=== PATIENT | female | born 1995 | race Caucasian/White ===

== ENCOUNTER 2019-08-17 11:29 | Inpatient (IN) | payer OTHER ==
[~2019-08-17] VITALS: Ht 162.6 cm; Wt 88.0 kg
[2019-08-17] MEDS ORDERED: OXYTOCIN/0.9 % SODIUM CHLORIDE 1,000 ML IV SCH (11:57)
[2019-08-17] MEDS ORDERED: AMPICILLIN SODIUM 2 GM in NS 100 ML IV ONE (12:00)
[2019-08-17] MEDS ORDERED: TERBUTALINE SULFATE 1 MG/ML VIAL SUBCUT ONE (12:00)
[2019-08-17 12:54] LABS: BASOPHILS % (AUTO) 0.1 % (0.0-2.0); EOSINOPHILS % (AUTO) 0.7 % (0.0-4.0); HEMATOCRIT 28.4 % (36-48); HEMOGLOBIN 9.3 g/dL (12.0-16.0); LYMPHOCYTES # (AUTO) 1.9 K/uL (1.0-5.5); LYMPHOCYTES % (AUTO) 35.1 % (20.5-51.5); MEAN CORPUSCULAR HEMOGLOBIN 27 pg (27-31); MEAN CORPUSCULAR HGB CONC 33 % (32-36); MEAN CORPUSCULAR VOLUME 82 fL (79.0-98.0); MONOCYTES # (AUTO) 0.3 K/uL (0.0-1.0); MONOCYTES % (AUTO) 5.4 % (1.7-9.3); NEUTROPHILS # (AUTO) 3.1 K/uL (1.8-7.7); NEUTROPHILS % (AUTO) 58.7 % (40.0-70.0); PLATELET COUNT (AUTO) 299 K/uL (130-430); RED BLOOD CELL COUNT(AUTO) 3.45 MIL/uL (4.2-6.2); RED CELL DISTRIBUTION WIDTH 15.9 % (9.0-15.0); WHITE BLOOD COUNT (AUTO) 5.3 K/uL (4.8-10.8)
[2019-08-17] MEDS: LR 1,000 ML IV SCH ×2 (13:09→20:06)
[2019-08-17] MEDS: MISOPROSTOL 100 MCG TABLET (CYTOTEC) PO PRN ×2 (13:12→17:07)
[2019-08-17 16:38] VITALS: BP_SYST 125
[2019-08-17] MEDS: AMPICILLIN SODIUM 1 GM in NS 50 ML IV SCH ×2 (17:06→20:07)
[2019-08-17] MEDS ORDERED: ROPIVACAINE HCL/PF 0.2% 200 ML ONE (19:35)
[2019-08-17] MEDS ORDERED: fentaNYL CITRATE/PF 100 MCG/2 ML AMP ONE (19:35)
[2019-08-17] MEDS ORDERED: LR 500 ML IV ONE (19:53)
[2019-08-17] MEDS ORDERED: FENT2mCg/mL-ROPIVA0.2%/NS EPID 200 ML EP SCH (20:00)
[2019-08-18] MEDS: AMPICILLIN SODIUM 1 GM in NS 50 ML IV SCH ×5 (04:34→12:05)
[2019-08-18] MEDS: ONDANSETRON HCL 4 MG/2 ML VIAL IVP PRN ×2 (04:34→08:15)
[2019-08-18] MEDS: LR 1,000 ML IV SCH ×3 (04:34→11:20)
[2019-08-18] MEDS ORDERED: ROPIVACAINE HCL/PF 0.2% 100 ML ONE ×2 (08:13→11:09)
[2019-08-18] MEDS ORDERED: ROPIVACAINE HCL/PF 0.2% 200 ML EP ONE (09:15)
[2019-08-18] MEDS ORDERED: fentaNYL CITRATE/PF 100 MCG/2 ML AMP ONE ×2 (09:24→10:48)
[2019-08-18] MEDS ORDERED: fentaNYL CITRATE/PF 100 MCG/2 ML AMP EP ONE (10:45)
[2019-08-18] MEDS ORDERED: METHYLERGONOVINE MALEATE 0.2 MG/ML AMP IM ONE (13:55)
[2019-08-18] MEDS ORDERED: METHYLERGONOVINE MALEATE 0.2 MG/ML AMP ONE (13:59)
[2019-08-18] MEDS ORDERED: OXYCODONE/ACETAMINOPHEN 5-325 TABLET ONE (14:16)
[2019-08-18] MEDS ORDERED: OXYTOCIN/0.9 % SODIUM CHLORIDE 1,000 ML IV ONE (15:40)
[2019-08-18] MEDS ORDERED: WITCH HAZEL LEAF 1 MED.PAD MED.PAD TP PRN (15:45)
[2019-08-18] MEDS ORDERED: RHO(D) IMMUNE GLOBULIN/MALTOSE 1500 UNITS/1.3 ML (WINHRO) IM PRN (15:45)
[2019-08-18] MEDS ORDERED: ANUSOL 1 EA SUPP.RECT (PREPARATION H) RC PRN (15:45)
[2019-08-18] MEDS ORDERED: SENNOSIDES/DOCUSATE SODIUM 1 TAB TABLET(SENOKOT-S) PO PRN (15:45)
[2019-08-18] MEDS ORDERED: HYDROCORTISONE 0.5%, 28.35 GM TOPICAL CREAM TP PRN (15:45)
[2019-08-18] MEDS ORDERED: METHYLERGONOVINE MALEATE 0.2 MG TABLET PO PRN (15:45)
[2019-08-18] MEDS ORDERED: OXYCODONE/ACETAMINOPHEN 5-325 TABLET PO PRN (15:45)
[2019-08-18] MEDS ORDERED: LANOLIN 7 GM OINT. TP PRN (15:45)
[2019-08-18] MEDS ORDERED: DIPH-TET-PERTUS Vaccine 0.5 ML VIAL (ADACEL) I.M. PRN (15:45)
[2019-08-18] MEDS ORDERED: MEASLES,MUMPS&RUBELLA VACC/PF 12500 UNIT/0.5 ML VIAL SUBQ PRN (15:45)
[2019-08-18] MEDS ORDERED: DERMOPLAST SPRAY TP PRN (15:45)
[2019-08-18] MEDS ORDERED: TEMAZEPAM 15 MG CAPSULE PO PRN (21:00)
[2019-08-18] MEDS: DOCUSATE SODIUM 100 MG CAPSULE PO PRN (22:30)
[2019-08-18] MEDS: OXYCODONE/ACETAMINOPHEN 5-325 TABLET PO PRN (22:32)
[2019-08-19] MEDS: IBUPROFEN 600 MG TABLET PO SCH ×3 (06:00→12:06)
[2019-08-19] MEDS: DOCUSATE SODIUM 100 MG CAPSULE PO PRN ×2 (06:16→21:09)
[2019-08-19 07:44] LABS: BASOPHILS % (AUTO) 0.1 % (0.0-2.0); EOSINOPHILS % (AUTO) 0.5 % (0.0-4.0); LYMPHOCYTES # (AUTO) 2.1 K/uL (1.0-5.5); LYMPHOCYTES % (AUTO) 27.2 % (20.5-51.5); MEAN CORPUSCULAR HEMOGLOBIN 27 pg (27-31); MEAN CORPUSCULAR HGB CONC 33 % (32-36); MEAN CORPUSCULAR VOLUME 82 fL (79.0-98.0); MONOCYTES # (AUTO) 0.5 K/uL (0.0-1.0); MONOCYTES % (AUTO) 6.8 % (1.7-9.3); NEUTROPHILS % (AUTO) 65.4 % (40.0-70.0); PLATELET COUNT (AUTO) 244 K/uL (130-430); RED BLOOD CELL COUNT(AUTO) 2.36 MIL/uL (4.2-6.2); RED CELL DISTRIBUTION WIDTH 16.2 % (9.0-15.0); WHITE BLOOD COUNT (AUTO) 7.7 K/uL (4.8-10.8)
[2019-08-19 07:53] LABS: HEMATOCRIT 19.5 % (36-48); HEMOGLOBIN 6.3 g/dL (12.0-16.0)
[2019-08-19] MEDS: OXYCODONE/ACETAMINOPHEN 5-325 TABLET PO PRN ×3 (08:10→21:09)
[2019-08-19] MEDS ORDERED: BUPIVACAINE /PF 0.25% 30 ML VIAL INJ ONE (10:36)
[2019-08-19] MEDS ORDERED: LIDOCAINE PF 1% 30ML(POUR BTL) INJ ONE (10:37)
[2019-08-19] MEDS ORDERED: MINERAL OIL 30 ML UDC PO ONE (10:38)
[2019-08-19] MEDS: FERROUS SULFATE 325 MG TABLET.DR PO SCH (21:00)
[2019-08-20] MEDS: IBUPROFEN 600 MG TABLET PO SCH ×2 (00:15→06:24)
[2019-08-20] MEDS: FERROUS SULFATE 325 MG TABLET.DR PO SCH (09:00)
== END 2019-08-20 12:37 | disposition home or self-care (01) | DRG 560 ==
LOC: SPU 11:29
PROVIDERS: ADMIT Obstetrics & Gynecology; ATTEND Obstetrics & Gynecology
PROC: 3E0R3BZ Introduction of Anesthetic Agent into Spinal Canal, Percutaneous Approach (ICD-10-PCS; principal; 2019-08-18)
PROC: 10E0XZZ Delivery of Products of Conception, External Approach (ICD-10-PCS; 2019-08-18)
PROC: 00HU33Z Insertion of Infusion Device into Spinal Canal, Percutaneous Approach (ICD-10-PCS; 2019-08-18)
PROC: 0W8NXZZ Division of Female Perineum, External Approach (ICD-10-PCS; 2019-08-18)
PROC: 3E0234Z Introduction of Serum, Toxoid and Vaccine into Muscle, Percutaneous Approach (ICD-10-PCS; 2019-08-19)
DX: O99.824 Streptococcus B carrier state complicating childbirth (principal); R71.0 Precipitous drop in hematocrit; O26.893 Other specified pregnancy related conditions, third trimester; Z3A.39 39 weeks gestation of pregnancy; Z37.0 Single live birth; Z88.5 Allergy status to narcotic agent; Z88.8 Allergy status to other drugs, medicaments and biological substances; Z67.11 Type A blood, Rh negative
CPT/HCPCS: 36415; 81002-TC; 82962; 85018-TC; 85025; 86592; 86870; 86886; 86900; 86901; 94760; J0290; J2001; J2210; J2405; J2590; J2790; J2795; J3010; J3490

== ENCOUNTER 2021-04-14 02:30 | Observation (INO) | payer OTHER ==
[~2021-04-14] VITALS: Ht 154.9 cm; Wt 80.7 kg
== END 2021-04-14 05:35 | disposition home or self-care (01) ==
LOC: SPU 02:30
PROVIDERS: ADMIT Obstetrics & Gynecology; ATTEND Obstetrics & Gynecology
DX: O62.9 Abnormality of forces of labor, unspecified (principal); Z3A.38 38 weeks gestation of pregnancy
CPT/HCPCS: 81002; G0378

== ENCOUNTER 2021-04-23 21:30 | Inpatient (IN) | payer OTHER, SELFPAY ==
[~2021-04-23] VITALS: Ht 154.9 cm; Wt 80.7 kg
[2021-04-23] MEDS ORDERED: TERBUTALINE SULFATE 1 MG/ML VIAL SUBCUT ONE (22:00)
[2021-04-23] MEDS ORDERED: AMPICILLIN SODIUM 2 GM in NS 100 ML IV ONE (22:00)
[2021-04-23] MEDS ORDERED: OXYTOCIN/0.9 % SODIUM CHLORIDE 1,000 ML IV SCH (22:00)
[2021-04-23] MEDS ORDERED: NALBUPHINE HCL 10 MG/ML AMP IVP PRN (22:00)
[2021-04-23] MEDS ORDERED: LR 1,000 ML IV SCH (22:00)
[2021-04-23] MEDS ORDERED: LR 500 ML IV ONE ×2 (22:00→23:30)
[2021-04-23] MEDS ORDERED: AMPICILLIN SODIUM 2 GM VIAL ONE (22:23)
[2021-04-23] MEDS ORDERED: NALBUPHINE HCL 10 MG/ML AMP ONE (22:24)
[2021-04-23 22:40] VITALS: BP_SYST 151
[2021-04-23 23:02] LABS: BASOPHILS % (AUTO) 0.6 % (0.0-2.0); EOSINOPHILS % (AUTO) 0.7 % (0.0-4.0); HEMOGLOBIN 9.1 g/dL (12.0-16.0); LYMPHOCYTES # (AUTO) 2.2 K/uL (1.0-5.5); LYMPHOCYTES % (AUTO) 29.1 % (20.5-51.5); MEAN CORPUSCULAR HEMOGLOBIN 26 pg (27-31); MEAN CORPUSCULAR HGB CONC 33 % (32-36); MEAN CORPUSCULAR VOLUME 79 fL (79.0-98.0); MONOCYTES # (AUTO) 0.6 K/uL (0.0-1.0); MONOCYTES % (AUTO) 7.5 % (1.7-9.3); NEUTROPHILS # (AUTO) 4.6 K/uL (1.8-7.7); NEUTROPHILS % (AUTO) 62.1 % (40.0-70.0); PLATELET COUNT (AUTO) 259 K/uL (130-430); RED BLOOD CELL COUNT(AUTO) 3.56 MIL/uL (4.2-6.2); RED CELL DISTRIBUTION WIDTH 17.7 % (9.0-15.0); WHITE BLOOD COUNT (AUTO) 7.5 K/uL (4.8-10.8)
[2021-04-23] MEDS ORDERED: fentaNYL CITRATE/PF 100 MCG/2 ML AMP ONE (23:09)
[2021-04-23] MEDS ORDERED: ROPIVACAINE HCL/PF 0.2% 200 ML ONE (23:09)
[2021-04-23] MEDS ORDERED: FENT2mCg/mL-ROPIVA0.2%/NS EPID 200 ML EP SCH (23:30)
[2021-04-24] MEDS ORDERED: AMPICILLIN SODIUM 1 GM VIAL ONE (00:48)
[2021-04-24] MEDS ORDERED: AMPICILLIN SODIUM 1 GM in NS 50 ML IV SCH (02:00)
[2021-04-24] MEDS ORDERED: OXYTOCIN/0.9 % SODIUM CHLORIDE 1,000 ML IV SCH (03:45)
[2021-04-24] MEDS ORDERED: OXYTOCIN/0.9 % SODIUM CHLORIDE 1,000 ML IV ONE (03:45)
[2021-04-24] MEDS ORDERED: RHO(D) IMMUNE GLOBULIN/MALTOSE 1500 UNITS/1.3 ML (WINHRO) IM PRN (03:45)
[2021-04-24] MEDS ORDERED: DERMOPLAST SPRAY TP PRN (03:45)
[2021-04-24] MEDS ORDERED: LANOLIN 7 GM OINT. TP PRN (03:45)
[2021-04-24] MEDS ORDERED: ANUSOL 1 EA SUPP.RECT (PREPARATION H) RC PRN (03:45)
[2021-04-24] MEDS ORDERED: METHYLERGONOVINE MALEATE 0.2 MG TABLET PO PRN (03:45)
[2021-04-24] MEDS ORDERED: WITCH HAZEL LEAF 1 MED.PAD MED.PAD TP PRN (03:45)
[2021-04-24] MEDS ORDERED: HYDROCORTISONE 0.5% CREAM 28.4 GM CREAM.GM. TP PRN (03:45)
[2021-04-24] MEDS: IBUPROFEN 800 MG TABLET PO PRN ×3 (06:08→18:09)
[2021-04-24] MEDS: DOCUSATE SODIUM 100 MG CAPSULE PO SCH (11:16)
[2021-04-24] MEDS ORDERED: OXYTOCIN 10 UNIT/ML VIAL IM ONE (12:15)
[2021-04-24] MEDS ORDERED: DINOPROSTONE 10 MG SUPP VG ONE (14:30)
[2021-04-24] MEDS ORDERED: SENNOSIDES/DOCUSATE SODIUM 1 TAB TABLET(SENOKOT-S) PO SCH (21:00)
[2021-04-24] MEDS ORDERED: TEMAZEPAM 15 MG CAPSULE PO PRN (21:00)
[2021-04-25] MEDS: IBUPROFEN 800 MG TABLET PO PRN ×2 (06:13)
[2021-04-25 07:21] LABS: HEMOGLOBIN 9.1 g/dL (12.0-16.0)
[2021-04-25] MEDS: DOCUSATE SODIUM 100 MG CAPSULE PO SCH (10:39)
== END 2021-04-25 10:50 | disposition home or self-care (01) | DRG 560 ==
LOC: SPU 21:30
PROVIDERS: ADMIT Obstetrics & Gynecology; ATTEND Obstetrics & Gynecology
PROC: 10E0XZZ Delivery of Products of Conception, External Approach (ICD-10-PCS; principal; 2021-04-24)
PROC: 3E0R3BZ Introduction of Anesthetic Agent into Spinal Canal, Percutaneous Approach (ICD-10-PCS; 2021-04-24)
PROC: 00HU33Z Insertion of Infusion Device into Spinal Canal, Percutaneous Approach (ICD-10-PCS; 2021-04-24)
DX: O80 Encounter for full-term uncomplicated delivery (principal); Z37.0 Single live birth; Z20.822 Contact with and (suspected) exposure to COVID-19; Z3A.39 39 weeks gestation of pregnancy; Z88.8 Allergy status to other drugs, medicaments and biological substances
CPT/HCPCS: 36415; 81002; 85018; 85025; 86870; 86886; 86900; 86901; 94760; J0290; J2300; J2590; J3010